=== PATIENT | male | born 1975 ===

== ENCOUNTER 2017-10-09 08:47 | Emergency (ER) | payer OTHER, SELFPAY ==
[2017-10-09 09:05] VITALS: BP 116/77; PULSE 63; RESP 16; TEMP 97.4; O2SAT 95
--- NOTE | 2017-10-09 09:49 | ED PDOC ---
HPI: Back Time Seen by Provider: 10/09/17 09:33 Chief Complaint (Nursing): Back Pain Chief Complaint (Provider): Back Pain History Per: Patient History/Exam Limitations: no limitations Onset/Duration Of Symptoms: Days (x 2 weeks) Current Symptoms Are (Timing): Still Present Additional Complaint(s): Ata is a 42 y/o male with no past medical history who presents to the ED c/o mid upper back pain for the past 2 weeks with no associated shortness of breath , cough, trauma, weakness, or fever. Patient makes pizza for a living. PMD: None Past Medical History Reviewed: Historical Data, Nursing Documentation, Vital Signs Vital Signs: Last Vital Signs Temp 97.4 F L 10/09/17 09:03 Pulse 63 10/09/17 09:03 Resp 16 10/09/17 09:03 BP 116/77 10/09/17 09:03 Pulse Ox 95 10/09/17 09:03 - Medical History PMH: No Chronic Diseases - Family History Family History: States: Unknown Family Hx - Home Medications Home Medications: Ambulatory Orders Medication Instructions Recorded Cyclobenzaprine [Cyclobenzaprine 10 mg PO TID #10 tab 10/09/17 HCl] Naproxen [Naprosyn] 500 mg PO Q12H #20 tab 10/09/17 - Allergies Allergies/Adverse Reactions: Allergies Allergy/AdvReac Type Severity Reaction Status Date / Time No Known Allergies Allergy Verified 10/09/17 09:10 Review of Systems ROS Statement: Except As Marked, All Systems Reviewed And Found Negative Constitutional: Negative for: Fever, Weakness Respiratory: Negative for: Cough Musculoskeletal: Positive for: Back Pain (mid upper) Physical Exam - Reviewed Nursing Documentation Reviewed: Yes Vital Signs Reviewed: Yes - Physical Exam Cardiovascular/Chest: Positive for: Regular Rate, Rhythm Respiratory: Positive for: Normal Breath Sounds Back: Positive for: Other (No deformity; bilateral parathroacic spasm and tenderness). Negative for: Vertebral Tenderness - ECG O2 Sat by Pulse Oximetry: 95 (RA) Pulse Ox Interpretation: Normal Medical Decision Making Medical Decision Making: Time: 9:41 Initial Impression: Muscle Overuse Initial Plan: --Flexeril --Motrin Scribe Attestation: Documented by Jean Marie Loyd, acting as a scribe for Tim Cunningham MD. Provider Scribe Attestation: All medical record entries made by the Scribe were at my direction and personally dictated by me. I have reviewed the chart and agree that the record accurately reflects my personal performance of the history, physical exam, medical decision making, and the department course for this patient. I have also personally directed, reviewed, and agree with the discharge instructions and disposition. Disposition - Clinical Impression Clinical Impression: Upper back strain - Patient ED Disposition Is Patient to be Admitted: No Counseled Patient/Family Regarding: Diagnosis, Need For Followup, Rx Given - Disposition Referrals: [facility] [Outside] Disposition: Routine/Home Disposition Time: 11:01 Condition: FAIR Prescriptions: Cyclobenzaprine [Cyclobenzaprine HCl] 10 mg PO TID #10 tab Naproxen [Naprosyn] 500 mg PO Q12H #20 tab Instructions: Thoracic Back Strain (ED) Forms: [employer] (Nepali) Print Language: HAITIAN
== END 2017-10-09 11:44 | disposition home or self-care (01) ==
LOC: H.ER 08:47
DX: S29.012A Strain of muscle and tendon of back wall of thorax, initial encounter (principal)

== ENCOUNTER 2018-06-21 09:13 | Emergency (ER) | payer OTHER ==
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
[2018-06-21 10:51] LABS: BASO % 0.5 % (0.0-2.0); EOS # 0.1 K/uL (0.0-0.7); EOS % 1.9 % (0.0-4.0); HEMOGLOBIN 15.7 g/dL (12.0-18.0); LYMPH # 1.5 K/uL (1.0-4.3); LYMPH % 26.1 % (20.0-40.0); MEAN CELL VOLUME 87.1 fl (80.0-94.0); MEAN CORPUSCULAR HEMOGLOBIN 30.3 pg (27.0-31.0); MEAN CORPUSCULAR HGB CONC 34.9 g/dL (33.0-37.0); MEAN PLATELET VOLUME 7.4 fl (7.2-11.7); MONO # 0.4 K/uL (0.0-0.8); MONO % 7.8 % (0.0-10.0); NEUT # 3.6 K/uL (1.8-7.0); NEUT % 63.7 % (50.0-75.0); NRBC % 0.2 % (0.0-0.0); RBC 5.17 Mil/uL (4.40-5.90); WHITE BLOOD COUNT 5.7 K/uL (4.8-10.8)
[2018-06-21 11:06] LABS: BLOOD UREA NITROGEN 16 mg/dl (9-20); GFR NON-AFRICAN AMERICAN > 60
[2018-06-21 11:10] LABS: INR 1.1; PROTHROMBIN TIME 12.4 Seconds (9.8-13.1)
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
[2018-06-21 13:14] VITALS: BP 126/81; PULSE 77; RESP 17; TEMP 98.1; O2SAT 100
== END 2018-06-21 12:59 | disposition home or self-care (01) ==
LOC: H.ER 09:13
DX: S70.12XA Contusion of left thigh, initial encounter (principal); V13.4XXA Pedal cycle driver injured in collision with car, pick-up truck or van in traffic accident, initial encounter; Y92.410 Unspecified street and highway as the place of occurrence of the external cause